=== PATIENT | male | born 1985 | race Caucasian/White ===

== ENCOUNTER 2017-02-05 18:38 | Emergency (ER) | payer MEDICAID ==
[~2017-02-05] VITALS: Ht 193 cm; Wt 108.9 kg
[2017-02-05] MEDS ORDERED: ZOFRAN ODT SL STA (19:18)
--- NOTE | 2017-02-05 19:27 | ER.PDOC ---
General Chief Complaint: Sore Throat Stated Complaint: VOLMITING,CONGESTION,SORE THROAT TRAVEL OUT OF US: No Time seen by MD: 19:21 Source: patient, family Exam Limitations: no limitations History of Present Illness Initial Comments Patient complains of sore throat Timing/Duration: 24 hours Severity: moderate Associated Symptoms: headaches Allergies: Coded Allergies: Penicillins (Verified Allergy, Intermediate, Rash, 02/05/17) Past Medical History Medical History: no pertinent history Surgical History: no surgical history Social History Smoking: cigarettes, less than 1 pack/day Alcohol Use: none Drug Use: none Reviewed Nursing Reviewed: Vital Signs, Abn. Noted, Nursing Assessment Review of Systems All Other Systems: Reviewed and Negative Physical Exam General Appearance: Moderate Distress EENT: pharyngeal erythema, swelling Neck: Non-Tender, Supple, Normal Inspection Respiratory: chest non-tender CVS: tachycardia Gastrointestinal: Normal Bowel Sounds Rectal: Deferred Back: Normal Inspection Extremities: Normal Range of Motion Neurologic/Psychiatric: public health representative II-XII NML as Tested Skin: Normal Color Lymphatic: No Adenopathy Results/Orders Results/Orders Laboratory Tests Test 02/05/17 19:49 Group A Streptococcus Screen POSITIVE (NEGATIVE) Administered Medications Medications (Trade) Dose Ordered Sig/Demetria Route PRN Reason Start Time Stop Time Status Last Admin Dose Admin Ketorolac Tromethamine (Toradol) 60 mg OT ONCE IM 02/05/17 19:30 02/05/17 19:31 DC 02/05/17 19:40 Ondansetron HCl (Zofran Odt) 4 mg STAT STAT SL 02/05/17 19:18 02/05/17 19:20 DC 02/05/17 19:40 Acetaminophen/ Hydrocodone Bitart (Vaughn 10mg) 1 each OT ONCE PO 02/05/17 19:30 02/05/17 19:31 DC 02/05/17 19:40 Departure Time of Disposition: 19:59 Disposition: 01 HOME, SELF-CARE Impression: Primary Impression: Strep pharyngitis Additional Impression: Depression Qualified Codes: F32.9 - Major depressive disorder, single episode, unspecified Condition: Stable (ERASED) Referrals: PCP,UNKNOWN (PCP) PRIMARY CARE PROVIDER JOSE SHARPE MD Feb 05, 2017 19:27
[2017-02-05] MEDS ORDERED: TORADOL ONE (19:28)
[2017-02-05] MEDS ORDERED: ZOFRAN ODT ONE (19:28)
[2017-02-05] MEDS ORDERED: NORCO 10MG PO ONE ×2 (19:29→19:30)
[2017-02-05] MEDS ORDERED: TORADOL IM ONE (19:30)
[2017-02-05] MEDS ORDERED: ROCEPHIN IM IM STA (19:57)
[2017-02-05] MEDS ORDERED: ROCEPHIN ONE (20:00)
[2017-02-05] MEDS ORDERED: LIDOCAINE 1% VIAL ONE (20:02)
[2017-02-05 20:28] VITALS: BP 127/89
== END 2017-02-05 20:30 | disposition home or self-care (01) ==
LOC: ER 18:38
DX: J02.0 Streptococcal pharyngitis (principal); F32.9 Major depressive disorder, single episode, unspecified; Z88.0 Allergy status to penicillin; F17.210 Nicotine dependence, cigarettes, uncomplicated
CPT/HCPCS: 87880; 96372 ×2; 99284; J0696; J1885; J2001; Q0162

== ENCOUNTER 2017-02-06 07:08 | Emergency (ER) | payer MEDICAID ==
[~2017-02-06] VITALS: Ht 193 cm; Wt 106.6 kg
[2017-02-06] MEDS ORDERED: TORADOL IM STA (07:51)
[2017-02-06] MEDS ORDERED: DECADRON IM STA (07:51)
[2017-02-06] MEDS ORDERED: DECADRON ONE (07:54)
[2017-02-06] MEDS ORDERED: TORADOL ONE (07:54)
--- NOTE | 2017-02-06 08:01 | ER.PDOC ---
General Chief Complaint: Sore Throat Stated Complaint: SORE THROAT Time seen by MD: 07:53 Source: patient Exam Limitations: no limitations History of Present Illness Initial Comments Sore throat for 3 days. Seen last night here and given a shot of Rocephin. Comes in because of pain. He has a prescription of Ultram but has not filled it. Associated Symptoms: mod sore throat Severity: moderate Allergies: Coded Allergies: Penicillins (Verified Allergy, Intermediate, Rash, 02/05/17) Past Medical History Surgical History: no surgical history Social History Smoking: less than 1 pack/day Alcohol Use: none Drug Use: none Constitutional: no symptoms reported Throat: see HPI Respiratory: no symptoms reported Cardiovascular: no symptoms reported Gastrointestinal: no symptoms reported All Other Systems: Reviewed and Negative Physical Exam General Appearance: alert, no distress Mouth: lips, gums nml, no drooling, no thrush, membranes nml Throat: pharyngeal erythema, tonsillar swelling Respiratory: no resp. distress, lungs clear CVS: reg. rate & rhythm, heart sounds nml Abdomen: non-tender, no organomegaly Extremities: non-tender, ROM nml Skin Exam: Normal Color, Warm/Dry NEURO/PSYCH: oriented X3, mood/effect nml Departure Time of Disposition: 08:01 Disposition: 01 HOME, SELF-CARE Impression: Primary Impression: Strep pharyngitis Additional Impression: Acute tonsillitis Qualified Codes: J03.00 - Acute streptococcal tonsillitis, unspecified Condition: Stable Referrals: PCP,UNKNOWN (PCP) PRIMARY CARE PROVIDER Additional Instructions: Fill your prescription and take as directed Chloraseptic spray as needed for throat pain F/U with your PCP next week VANESSA SNOW MD Feb 06, 2017 08:01
[2017-02-06 08:11] VITALS: BP 118/64
== END 2017-02-06 08:17 | disposition home or self-care (01) ==
LOC: ER 07:08
DX: J03.00 Acute streptococcal tonsillitis, unspecified (principal); F17.200 Nicotine dependence, unspecified, uncomplicated; Z88.0 Allergy status to penicillin
CPT/HCPCS: 96372 ×2; 99284; J1100; J1885

== ENCOUNTER 2017-02-12 21:06 | Emergency (ER) | payer MEDICAID ==
[~2017-02-12] VITALS: Ht 193 cm; Wt 106.6 kg
--- NOTE | 2017-02-12 21:48 | ER.PDOC ---
General Chief Complaint: Sore Throat Stated Complaint: SORE THROAT Time seen by MD: 21:46 Source: patient Exam Limitations: no limitations History of Present Illness Initial Comments Sore throat for 3 days Timing/Duration: gradual Associated Symptoms: mod sore throat Severity: moderate Prior symptoms/Treatment: Similar symptoms previous (1 week ago), Recenly Seen , Treated by Doctor Allergies: Coded Allergies: No Known Allergies (Unverified , 02/12/17) Past Medical History Medical History: asthma Surgical History: no surgical history Social History Smoking: cigarettes, less than 1 pack/day Alcohol Use: none Drug Use: none Constitutional: no symptoms reported Throat: see HPI Respiratory: no symptoms reported Cardiovascular: no symptoms reported Gastrointestinal: no symptoms reported Musculoskeletal: no symptoms reported All Other Systems: Reviewed and Negative Physical Exam General Appearance: alert, no distress Mouth: lips, gums nml, no drooling, no thrush, membranes nml Throat: pharyngeal erythema, tonsillar exudate, tonsillar swelling Respiratory: no resp. distress, lungs clear CVS: reg. rate & rhythm, heart sounds nml Abdomen: non-tender, no organomegaly Extremities: non-tender, ROM nml Skin Exam: Normal Color, Warm/Dry NEURO/PSYCH: oriented X3, mood/effect nml Results/Orders Results/Orders Laboratory Tests Test 02/12/17 21:40 Monoscreen NEGATIVE (NEGATIVE) Group A Streptococcus Screen POSITIVE (NEGATIVE) Administered Medications Medications (Trade) Dose Ordered Sig/Demetria Route PRN Reason Start Time Stop Time Status Last Admin Dose Admin Penicillin G Procaine/ Benzathine (Bicillin C-R 1,200,000) 1,200,000 unit STAT STAT IM 02/12/17 21:59 02/12/17 22:02 DC 02/12/17 21:55 Dexamethasone Sodium Phosphate (Decadron) 4 mg STAT STAT IM 02/12/17 21:59 02/12/17 22:02 DC 02/12/17 21:55 Departure Time of Disposition: 22:32 Disposition: 01 HOME, SELF-CARE Impression: Primary Impression: Strep pharyngitis Additional Impression: Acute tonsillitis Qualified Codes: J03.90 - Acute tonsillitis, unspecified Condition: Stable Referrals: PCP,UNKNOWN (PCP) PRIMARY CARE PROVIDER Additional Instructions: Prednisone Chloraseptic spray OTC as directed F/U with your PCP in 2-3 days VANESSA SNOW MD Feb 12, 2017 21:48
[2017-02-12] MEDS ORDERED: DECADRON ONE (21:51)
[2017-02-12] MEDS ORDERED: BICILLIN L-A IM ONE (21:51)
[2017-02-12] MEDS ORDERED: BICILLIN C R IM STA (21:59)
[2017-02-12] MEDS ORDERED: DECADRON IM STA (21:59)
[2017-02-12] MEDS ORDERED: TORADOL ONE (22:42)
[2017-02-12] MEDS ORDERED: TORADOL IM STA (22:45)
[2017-02-12 22:57] VITALS: BP 116/65
== END 2017-02-12 22:55 | disposition home or self-care (01) ==
LOC: ER 21:06
DX: J03.00 Acute streptococcal tonsillitis, unspecified (principal); J45.909 Unspecified asthma, uncomplicated; F17.210 Nicotine dependence, cigarettes, uncomplicated
CPT/HCPCS: 36415; 86308; 87880; 96372 ×3; 99284; J0561; J1100; J1885